=== PATIENT | female | born 1985 ===

== ENCOUNTER 2018-02-08 17:23 | Inpatient (IN) | payer BC ==
[~2018-02-08] VITALS: Ht 167.6 cm; Wt 109.5 kg
[~2018-02-08 17:23] MED LIST: MOTRIN800 MG PO; PERCOCET 5/321 UDTAB PO; PRENATAL VITAMI1 TA5 PO
[2018-02-12] VITALS (22 sets, daily range): BP systolic 94–145; BP diastolic 55–87; PULSE 60–118; TEMP 97.4–98.3
[2018-02-12 06:42] LABS: BASO % 0.3 % (0.0-2.0); EOS # 0.1 (0.0-0.7); EOS % 0.8 % (0-4.0); GRAN # 6.4 (1.4-6.5); GRAN % 71.6 % (42.2-75.2); HEMOGLOBIN 10.2 g/dl (12.5-16.0); LYMPH # 1.7 (1.2-3.4); LYMPH % 19.4 % (20.0-51.0); MEAN CELL VOLUME 82 fl (80.0-100.0); MEAN CORPUSCULAR HEMOGLOBIN 27 pg (27.0-31.0); MEAN CORPUSCULAR HGB CONC 33 g/dl (33.0-37.0); MEAN PLATELET VOLUME 10.8 fl (7.4-10.4); MONO # 0.6 (0.1-0.6); PLATELET COUNT 180 K/mm3 (130-400); RED BLOOD COUNT 3.76 M/mm3 (4.10-5.30); REDCELL DISTRIBUTION WIDTH-CV 15.1 % (11.5-14.5)
[2018-02-12 06:45] LABS: HEMATOCRIT 30.7 % (37.0-47.0)
[2018-02-13 04:30] VITALS: BP 123/90; PULSE 79; TEMP 97.8
[2018-02-13 07:22] VITALS: BP 102/64; PULSE 66; TEMP 98
[2018-02-13 15:56] VITALS: BP 137/89; PULSE 79; TEMP 98
[2018-02-13 19:11] VITALS: BP 124/70; PULSE 77; TEMP 97.9
[2018-02-14 04:49] VITALS: BP 120/66; PULSE 68; TEMP 97.5
[2018-02-14] MEDS ORDERED: MOTRIN 800800 MG/TAB PO (08:09)
[2018-02-14] MEDS ORDERED: PERCOCET 325 MG1 TA2 PO (08:10)
[2018-02-14 08:15] VITALS: BP 132/79; PULSE 81; TEMP 97.9
[2018-02-14 16:30] VITALS: BP 127/83; PULSE 82; TEMP 98.3
[2018-02-14 19:40] VITALS: BP 130/78; PULSE 77; TEMP 97.7
[2018-02-15 08:10] VITALS: BP 128/73; PULSE 109; TEMP 97.9
== END 2018-02-15 11:45 | disposition home or self-care (01) | DRG 766 ==
LOC: LDR 17:23 → OB 02-12 05:31 → LDR 02-12 11:36 → OB 02-15 11:45
PROVIDERS: Obstetrics & Gynecology
PROC: 10D00Z1 Extraction of Products of Conception, Low, Open Approach (ICD-10-PCS; principal; 2018-02-12)
DX: O34.211 Maternal care for low transverse scar from previous cesarean delivery (principal); Z3A.39 39 weeks gestation of pregnancy; Z37.0 Single live birth
CPT/HCPCS: J0690; J1885; J2175; J2370; J2405; J2590; J3010; J7120